=== PATIENT | female | born 1940 | race Caucasian/White ===

== ENCOUNTER → 2017-02-06 | Outpatient (CLI) | payer MEDICARE, OTHER | END | disposition home or self-care (01) | LOC: GMAB 14:52 | PROVIDERS: ATTEND Family Medicine | DX: I10 Essential (primary) hypertension (principal) ==

== ENCOUNTER 2017-12-03 05:32 | Day surgery (SDC) | payer MEDICARE, OTHER ==
[2017-12-03] MEDS ORDERED: PROPARACAINE 0.5% OPHTH SOL 15 ML BTTL ONE (06:07)
[2017-12-03] MEDS ORDERED: TROP 1%/CYCLOPEN 1%/PHENYL 2% DROPS ONE (06:07)
[2017-12-03] MEDS ORDERED: TOBRAMYCIN SULF 0.3 % OPHT SOL 1 DROP RIGHT_EYE ONE ×3 (08:25→09:39)
[2017-12-03] MEDS ORDERED: MIDAZOLAM INJ 2 MG/2 ML VIAL ONE ×2 (09:07→09:25)
[2017-12-03] MEDS ORDERED: PROPARACAINE 0.5% OPHTH SOL 15 ML BTTL RIGHT_EYE ONE (09:10)
[2017-12-03] MEDS ORDERED: LIDOCAINE 1% PF 2 ML AMP INJ ONE ×2 (09:20→09:26)
[2017-12-03] MEDS ORDERED: DEXAMETHASONE 0.1% OPHTH SOL 1 DROP RIGHT_EYE ONE ×2 (09:20→09:39)
[2017-12-03] MEDS ORDERED: BRIMONIDINE 0.2% OPHTH DROPS RIGHT_EYE ONE ×2 (09:20→09:39)
[2017-12-03 11:36] VITALS: O2SAT 95
[2017-12-03 11:38] VITALS: BP 110/72; TEMP 98.6
== END 2017-12-03 10:24 | disposition home or self-care (01) ==
LOC: AMB 05:32
PROVIDERS: ATTEND Ophthalmology
DX: H25.11 Age-related nuclear cataract, right eye (principal); I10 Essential (primary) hypertension; I25.10 Atherosclerotic heart disease of native coronary artery without angina pectoris; K21.9 Gastro-esophageal reflux disease without esophagitis; J44.9 Chronic obstructive pulmonary disease, unspecified; Z95.5 Presence of coronary angioplasty implant and graft; Z87.891 Personal history of nicotine dependence; Z79.899 Other long term (current) drug therapy
CPT/HCPCS: 00142; 66984; J2250

== ENCOUNTER 2017-12-17 05:21 | Day surgery (SDC) | payer MEDICARE, OTHER ==
[2017-12-17] MEDS ORDERED: PROPARACAINE 0.5% OPHTH SOL 15 ML BTTL ONE (05:52)
[2017-12-17] MEDS ORDERED: TROP 1%/CYCLOPEN 1%/PHENYL 2% DROPS ONE (05:52)
[2017-12-17] MEDS ORDERED: MIDAZOLAM INJ 2 MG/2 ML VIAL ONE ×2 (09:49→09:51)
[2017-12-17] MEDS ORDERED: PROPARACAINE 0.5% OPHTH SOL 15 ML BTTL LEFT_EYE ONE (09:52)
[2017-12-17] MEDS ORDERED: DEXAMETHASONE 0.1% OPHTH SOL 1 DROP LEFT_EYE ONE ×3 (10:00→10:21)
[2017-12-17] MEDS ORDERED: LIDOCAINE 1% PF 2 ML AMP INJ ONE ×2 (10:00→10:11)
[2017-12-17] MEDS ORDERED: BRIMONIDINE 0.2% OPHTH DROPS LEFT_EYE ONE ×3 (10:01→10:21)
[2017-12-17] MEDS ORDERED: TOBRAMYCIN SULF 0.3 % OPHT SOL 1 DROP LEFT_EYE ONE ×3 (10:01→10:21)
== END 2017-12-17 11:00 | disposition home health service (06) ==
LOC: AMB 05:21
PROVIDERS: ATTEND Ophthalmology
DX: H25.12 Age-related nuclear cataract, left eye (principal); I10 Essential (primary) hypertension; K21.9 Gastro-esophageal reflux disease without esophagitis; I25.10 Atherosclerotic heart disease of native coronary artery without angina pectoris; J44.9 Chronic obstructive pulmonary disease, unspecified; Z95.5 Presence of coronary angioplasty implant and graft; Z79.899 Other long term (current) drug therapy
CPT/HCPCS: 00142; 66984; J2250

== ENCOUNTER → 2018-04-03 | Outpatient (CLI) | payer MEDICARE, OTHER | LOC: GMAE 14:41 | PROVIDERS: ATTEND Family Medicine | DX: I10 Essential (primary) hypertension (principal) ==

== ENCOUNTER 2018-05-09 12:20 | Inpatient (IN) | payer MEDICARE, OTHER ==
--- NOTE | 2018-05-09 13:17 | RAD ---
EXAM DESCRIPTION: Chest x-ray,2 Views CLINICAL HISTORY: fever, cp after egd COMPARISON: Previous study July 17, 2017 TECHNIQUE: PA/lateral FINDINGS: Calcified breast implants are seen bilaterally. The aortic arch is calcified. Heart size is normal with normal pulmonary vascularity. No pleural effusion or pneumothorax. Lungs are clear with no consolidating infiltrate. Lateral view shows intact sternum and osteopenic T-spine. IMPRESSION: No acute process is identified in the chest. Electronically signed by: Wayne Snider MD 05/09/2018 1:15 PM CDT
[2018-05-09] MEDS ORDERED: MORPHINE SULFATE INJ 10 MG/ML VIAL IV ONE (14:49)
[2018-05-09] MEDS ORDERED: ALUM & MAG HYDROX-SIMETHICONE 30 ML, LIDOCAINE VISCOUS 2% 15 ML PO ONE ×2 (14:51)
[2018-05-09] MEDS ORDERED: ALUM & MAG HYDROX-SIMETHICONE 30 ML UD ONE (14:52)
[2018-05-09] MEDS ORDERED: LIDOCAINE HCL 2% (MOUTH-THROAT) 15 ML UD ONE (14:52)
--- NOTE | 2018-05-09 14:59 | CT ---
EXAM DESCRIPTION: Chest w/o Contrast CLINICAL HISTORY: 78 years Female, fever, chest pain after egd COMPARISON: Chest x-ray dated 09 May 2018 TECHNIQUE: Transaxial images were obtained without intravenous contrast media. Sagittal and coronal reconstruction was performed.This exam was performed according to our departmental dose-optimization program, which includes automated exposure control, adjustment of the mA and/or kV according to patient size and/or use of iterative reconstruction technique. FINDINGS: The thyroid is normal in appearance. No pathologic axillary adenopathy is observed. Bilateral breast prostheses are identified. Some coronary artery calcification is noted. No pleural fluid is seen. A small hiatus hernia is observed. No adrenal masses are detected. Bullous changes are observed in both lungs. No hilar or mediastinal adenopathy is seen. No focal infiltrate is seen. No bone abnormality is seen. IMPRESSION: 1. 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 2. Small hiatus hernia. 3. No etiology for the fever and chest pain is evident. Electronically signed by: Jhonathan Marquez MD 05/09/2018 2:57 PM CDT
[2018-05-09] MEDS ORDERED: PIPERACILLIN/TAZOBACTAM 3.375 GM in SODIUM CHLORIDE 0.9% 100ML 100 ML IVPB ONE (15:40)
[2018-05-09] MEDS ORDERED: SODIUM CHLORIDE 0.9% 100ML 100 ML IVPB ONE (15:45)
[2018-05-09] MEDS ORDERED: PIPERACILLIN/TAZOBACTAM 3.375 GM VIAL IVPB ONE ×2 (15:45→21:28)
--- NOTE | 2018-05-09 16:08 | ED.PDOC ---
History of Present Illness - General Chief Complaint: General Stated Complaint: esophageal pain Time Seen by Provider: 05/09/18 12:38 Source: patient Exam Limitations: no limitations - History of Present Illness Initial Comments: the patient is a 78-year-old female presenting to the emergency room secondary to substernal and epigastric chest pain since her EGD yesterday. She has documented a fever up to 101 at home. It is right around 100 here. She's been unable to swallow any solids but has been able to take liquids. The pain has been getting worse over the last 24 hours. She did have an esophageal dilation with the EGD yesterday. Timing/Duration: 24 hours Severity: severe Improving Factors: nothing Worsening Factors: eating Associated Symptoms: chest pain Allergies/Adverse Reactions: Allergies NO KNOWN ALLERGY Allergy (Verified 05/09/18 12:46) Home Medications: Ambulatory Orders Temazepam [Restoril] 15 mg PO BEDTIME 12/03/17 Aspirin [Ecotrin] 325 mg PO BEDTIME 05/09/18 Atorvastatin Calcium [Lipitor] 20 mg PO BEDTIME 05/09/18 Budesonide Nebs [Pulmicort Respules] 0.5 mg NEB PRN 05/09/18 [id number]-[id number] [Calcium & Magnesium + Zin 334-134-5 mg] 1 tab PO BEDTIME 05/09/18 Carisoprodol 350 mg PO BID PRN 05/09/18 Cholecalciferol [Vitamin D] 3,000 unit PO BEDTIME 05/09/18 Conjugated Estrogens [Premarin] 0.45 mg PO BEDTIME 05/09/18 Dexlansoprazole [Dexilant] 60 mg PO DAILY 05/09/18 Gabapentin 300 mg PO BEDTIME 05/09/18 HYDROcodone 5MG/APAP 325MG [Joshua Tree 5/325] 1 tab PO PRN 05/09/18 Losartan Potassium 100 mg PO DAILY 05/09/18 Multiple Vitamin [Multivitamins] 1 cap PO DAILY 05/09/18 Sertraline HCl [Zoloft] 100 mg PO DAILY 05/09/18 Review of Systems - Review of Systems Constitutional: States: fever EENTM: States: no symptoms reported Respiratory: States: no symptoms reported Cardiology: States: chest pain Gastrointestinal/Abdominal: States: abdominal pain Genitourinary: States: no symptoms reported Musculoskeletal: States: no symptoms reported Skin: States: no symptoms reported Neurological: States: no symptoms reported Endocrine: States: no symptoms reported All other Systems: No Change from Baseline Past Medical History (General) - Patient Medical History Hx Cardiac Disorders: Yes Hx Congestive Heart Failure: No Hx Hypertension: Yes Hx Diabetes: No Hx MRSA: No Surgical History: tonsillectomy - Vaccination History Hx Influenza Vaccination: Yes - 03/2018 Hx Pneumococcal Vaccination: Yes - Social History Hx Tobacco Use: Yes Family Medical History - Family History Mother Family History: Unknown Living Status: Unknown Physical Exam - Physical Exam General Appearance: Alert, Anxious Eye Exam: bilateral normal Ears, Nose, Throat: hearing grossly normal, normal ENT inspection Neck: full range of motion, supple, normal inspection Respiratory: lungs clear, normal breath sounds, no respiratory distress, no accessory muscle use Cardiovascular/Chest: normal peripheral pulses, regular rate, rhythm, no edema Peripheral Pulses: radial,right: 2+, radial,left: 2+, dorsalis pedis,right: 2+, dorsalis pedis,left: 2+ Gastrointestinal/Abdominal: soft, other - epigastric discomfort palpation Rectal Exam: deferred Back Exam: normal inspection, no CVA tenderness Extremity: normal range of motion, non-tender, normal inspection, no pedal edema , normal capillary refill 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 I did talk with her obstetric anaesthetist Dr. luna and discussed the patient's findings and workup with him. He does agree the most likely source is inflammation from the EGD with dilation yesterday. He does recommend doing antibiotics for the next 5 days such as Augmentin. Secondary to the patient's discomfort she is going to be admitted primarily for pain control over the next 24 hours until she is able to tolerate oral intake adequate enough to keep her hydrated. For now the patient will be on a liquid diet. She did respond very well to the GI cocktail symptomatically. She is going to be placed on Zosyn here for now. A blood culture was done. Admit for pain control and hydration and monitoring. Anticipate a relatively short hospital stay. Acid reducing medications will also be continued. - Results/Orders Results/Orders: chest x-ray shows no overt infiltrate or any evidence of any perforation. CT scan of the chest shows no etiology for the chest pain. No significant infiltrates. No evidence of any perforation of the esophagus. Laboratory Tests 05/09/18 05/09/18 05/09/18 13:17 13:17 13:17 WBC 6.1 RBC 4.43 Hgb 13.7 Hct 40.4 MCV 91.4 MCH 31.0 MCHC 33.9 RDW 13.5 Plt Count 113 L MPV 7.6 Absolute Neuts (auto) 4.50 Absolute Lymphs (auto) 0.90 L Absolute Monos (auto) 0.70 Absolute Eos (auto) 0.10 Absolute Basos (auto) 0.00 Neutrophils % 72.8 Lymphocytes % 14.1 L Monocytes % 11.6 H Eosinophils % 1.0 Basophils % 0.5 PT 9.5 INR 0.95 PTT (SP) 27.5 Sodium 137 Potassium 3.6 Chloride 103 Carbon Dioxide 27 Anion Gap 10.6 L BUN 9 Creatinine 0.67 BUN/Creatinine Ratio 13.4 Random Glucose 92 Serum Osmolality 272.1 L Lactic Acid Calcium 9.1 Magnesium 1.9 Total Bilirubin 0.6 AST 22 ALT 18 Alkaline Phosphatase 81 Creatine Kinase 66 CK-MB (CK-2) 1.0 CK-MB (CK-2) % Not Reportable Troponin I < 0.02 Serum Total Protein 6.8 Albumin 4.1 Globulin 2.7 Albumin/Globulin Ratio 1.5 Amylase 48 Lipase 12 L 05/09/18 13:17 WBC RBC Hgb Hct MCV MCH MCHC RDW Plt Count MPV Absolute Neuts (auto) Absolute Lymphs (auto) Absolute Monos (auto) Absolute Eos (auto) Absolute Basos (auto) Neutrophils % Lymphocytes % Monocytes % Eosinophils % Basophils % PT INR PTT (SP) Sodium Potassium Chloride Carbon Dioxide Anion Gap BUN Creatinine BUN/Creatinine Ratio Random Glucose Serum Osmolality Lactic Acid 0.7 Calcium Magnesium Total Bilirubin AST ALT Alkaline Phosphatase Creatine Kinase CK-MB (CK-2) CK-MB (CK-2) % Troponin I Serum Total Protein Albumin Globulin Albumin/Globulin Ratio Amylase Lipase Departure - Departure Clinical Impression: Esophagitis Disposition: Admit Patient Condition: Fair Home Medications: Ambulatory Orders Temazepam [Restoril] 15 mg PO BEDTIME 12/03/17 Aspirin [Ecotrin] 325 mg PO BEDTIME 05/09/18 Atorvastatin Calcium [Lipitor] 20 mg PO BEDTIME 05/09/18 Budesonide Nebs [Pulmicort Respules] 0.5 mg NEB PRN 05/09/18 [id number] [Calcium & Magnesium + Zin 334-134-5 mg] 1 tab PO BEDTIME 05/09/18 Carisoprodol 350 mg PO BID PRN 05/09/18 Cholecalciferol [Vitamin D] 3,000 unit PO BEDTIME 05/09/18 Conjugated Estrogens [Premarin] 0.45 mg PO BEDTIME 05/09/18 Dexlansoprazole [Dexilant] 60 mg PO DAILY 05/09/18 Gabapentin 300 mg PO BEDTIME 05/09/18 HYDROcodone 5MG/APAP 325MG [Joshua Tree 5/325] 1 tab PO PRN 05/09/18 Losartan Potassium 100 mg PO DAILY 05/09/18 Multiple Vitamin [Multivitamins] 1 cap PO DAILY 05/09/18 Sertraline HCl [Zoloft] 100 mg PO DAILY 05/09/18 Decision To Admit - Decistion To Admit Decision to Admit Reason: Medical Nature Decision to Admit Date: 05/09/18 Decision to Admit Time: 16:13
--- NOTE | 2018-05-09 17:07 | HP ---
SUPERVISING PHYSICIAN: Tim Pride MD CHIEF COMPLAINT: Esophageal pain. HISTORY OF PRESENT ILLNESS: This is a 78 year-old female patient who presented to the Emergency Room today with substernal epigastric chest pain since her EGD yesterday afternoon. She has had a hiatal hernia and gastroesophageal reflux disease in the past and she was having her esophageal stretched. Shortly after coming home after her procedure in [place], she had pain in her esophageal region and it was difficult for her to swallow solid foods. She was lying down to take a nap and she woke up with chills and fever. Her fever went up to 101.7. She was unable to reach the GI doctor, Dr. Moffett , overnight so this morning she spoke to Dr. Moffett and he told her to come to the nearest Emergency Room. Dr. Moffett called the Emergency Room and gave his recommendations for the patient. In the Emergency Room, her vital signs were temperature as high as 100.6. Her heart rate was 98, blood pressure 134/101, respiratory rate 20, 02 saturation 96 %. Her CBC was basically within normal limits except for a slightly low platelet count of 113,000. Her serum osmolality was 272.2 and her lipase was 12. Blood cultures were drawn. Chest x-ray showed no acute process. CT of the chest showed findings of bullous emphysema noted, small hiatus hernia and no etiology for the fever and chest pain is evident. There was no perforation seen on CT. Her lipase was 0.7 and she was given some fluids as well as started on Zosyn. The recommendations were to start her on Zosyn, advance her diet slowly as she tolerated it, monitor her closely over the next one to two days and she could be discharged on some Augmentin. I was called for hospital admission. PAST MEDICAL HISTORY: 1. Anxiety. 2. Depression. 3. Hyperlipidemia. 4. Gastroesophageal reflux disease. 5. Hypertension. PAST SURGICAL HISTORY: 1. Hysterectomy. 2. Tonsillectomy. 3. Breast augmentation. 4. Coronary artery stint placement. 5. Blowout fracture of the right eye. 6. Surgery to right foot due to cellulitis. 7. Carpal tunnel of right hand. CURRENT MEDICATIONS: ALLERGIES: No known drug allergies. FAMILY HISTORY: SOCIAL HISTORY: She lives [facility], she is . She has 3 children. She quit smoking in 2010. She drink alcohol rarely. She denies any illicit drug use. REVIEW OF SYSTEMS: GENERAL: Positive for fever, negative for fatigue or weight changes. HEENT: Negative for ear pain, vision changes, sinus symptoms or sore throat. RESPIRATORY. Denies shortness of breath, wheezing or coughing. CARDIAC: Negative for chest pain, palpitations, tachycardia. GI: Positive for epigastric pain and nausea, negative for vomiting, diarrhea or constipation. : Negative for hematuria, dysuria, polyuria. NEURO: Negative for seizures, headaches or dizziness. PHYSICAL EXAMINATION: VITAL SIGNS: Temperature 100.6, heart rate 96, blood pressure 104/64, respiratory rate 20, 02 saturation 97%. GENERAL: This is a 78 year-old female patient lying in her hospital bed. She is in no acute distress. HEENT: Normocephalic and atraumatic. Pupils are equal and reactive. Oropharynx is clear. NECK: Supple without mass. CHEST: CARDIOVASCULAR: Regular rate and rhythm. ABDOMEN: Soft, nontender, nondistended. Bowel sounds are positive. EXTREMITIES: No cyanosis, clubbing, or edema. NEUROLOGIC: She is awake, alert, and oriented x3. LABS AND FILMS: As per the history of present illness. ASSESSMENT: 1. SIRS related to post procedure esophagitis with temperature of 100.6 and heart rate of 96 on admission. 2. Febrile illness secondary to #1. 3. Hypertension, stable. 4. Gastroesophageal reflux disease. PLAN: Will admit patient to the hospital. I have started her on a PPI for ulcer prophylaxis as well as some general IV fluids overnight. I have also started her on the extended infusion of Zosyn. I have ordered antiemetics and pain medication. She will be on clear liquids for now and tomorrow morning if tolerated, we will advance her to a full-liquid. Hopefully, over the next one to two days she will be able to tolerate her medications and we can discharge her home on Augmentin with close followup with Dr. Moffett, her GI physician, as well as her primary care physician, Dr. Pride. #[id number] [facility]
[2018-05-09] MEDS ORDERED: ONDANSETRON INJ 4 MG/2 ML VIAL IV PRN (20:18)
[2018-05-09] MEDS ORDERED: SODIUM CHLORIDE 0.9% (FLUSH) 10 ML SYG IV PRN (20:18)
[2018-05-09] MEDS: MORPHINE SULFATE INJ 10 MG/ML VIAL IV PRN (20:27)
[2018-05-09] MEDS ORDERED: IV SET AND CAP CHANGE INJ INJ SCH (20:30)
[2018-05-09] MEDS ORDERED: PANTOPRAZOLE SODIUM IV 40 MG VIAL IV SCH (20:30)
[2018-05-09] MEDS ORDERED: KCL 20MEQ/0.45% NS 1,000 ML IVS PRN (20:52)
[2018-05-09] MEDS ORDERED: GABAPENTIN 300 MG CAP PO SCH (21:00)
[2018-05-09] MEDS ORDERED: TEMAZEPAM 15 MG PO SCH (21:00)
[2018-05-09] MEDS ORDERED: SODIUM CHL 0.9% 100ML MINI-BAG 100 ML IVPB ONE (21:27)
[2018-05-09] MEDS ORDERED: TEMAZEPAM 15 MG CAP ONE (21:28)
[2018-05-09] MEDS: PIPERACILLIN/TAZOBACTAM 3.375 GM in SODIUM CHLORIDE 0.9% 100ML 100 ML IVPB SCH (21:32)
[2018-05-10] MEDS: MORPHINE SULFATE INJ 10 MG/ML VIAL IV PRN (01:47)
[2018-05-10] MEDS ORDERED: SODIUM CHL 0.9% 100ML MINI-BAG 100 ML IVPB ONE (03:55)
[2018-05-10] MEDS ORDERED: PIPERACILLIN/TAZOBACTAM 3.375 GM VIAL IVPB ONE ×2 (03:56→12:28)
[2018-05-10] MEDS: PIPERACILLIN/TAZOBACTAM 3.375 GM in SODIUM CHLORIDE 0.9% 100ML 100 ML IVPB SCH ×2 (05:13→12:33)
[2018-05-10 08:50] VITALS: O2SAT 94
[2018-05-10] MEDS ORDERED: SERTRALINE HCL 50 MG TAB PO SCH (09:00)
[2018-05-10] MEDS ORDERED: LOSARTAN POTASSIUM 100 MG TAB PO SCH (09:00)
[2018-05-10] MEDS ORDERED: SODIUM CHLORIDE 0.9% 100ML 100 ML IVPB ONE (12:28)
--- NOTE | 2018-05-10 13:09 | PN ---
SUPERVISING PHYSICIAN: Oumar Pride MD DATE: 05/10/18 SUBJECTIVE: The patient is lying in bed, resting. She awakens easily. She has no complaints of nausea, vomiting, diarrhea or constipation. She says the pain in her esophagus continues, but it is much improved since yesterday. She is not having any trouble with pills that are capsules or very tiny, but she still is having trouble with larger pills or food. We discussed that she would stay on a full liquid for right now and we will advance her to a soft diet as tolerated. She agreed with that. OBJECTIVE: VITAL SIGNS: Afebrile. Heart rate 91. Blood pressure 137/58. Respiratory rate 18. O2 saturation 94% on room air. RESPIRATORY: Essentially clear to auscultation bilaterally. CARDIAC: Regular rate and rhythm. GASTROINTESTINAL: Abdomen is soft, nondistended, nontender. Bowel sounds are positive. EXTREMITIES: No cyanosis, clubbing or edema. NEUROLOGIC: Awake, alert and oriented times three. LABORATORY: WBC 4.6, stable hemoglobin of 13.1, hematocrit 38.9. Electrolytes are basically within normal limits except her calcium is slightly low at 8.3. Serum protein is low at 6.1. All other labs and films have been reviewed via the EMR. ASSESSMENT: 1. Systemic inflammatory response syndrome related to post procedure esophagitis with temperature of 100.6 and heart rate of 96 on admission. 2. Febrile illness secondary to #1. 3. Hypertension, stable. 4. Gastroesophageal reflux disease. PLAN: We will continue present supportive care. I have discontinued her primary IV fluids as she is taking p.o. fluids well. We will continue her on the Zosyn until she is able to swallow pills. We will advance her diet to a soft diet as tolerated. Once she is able to tolerate her pills, she can be discharged home with close followup with Dr. Moffett, her GI physician, as well as her primary care physician, Dr. Pride. I will hold on labs tomorrow as those have stabilized. We will monitor her closely and followed as needed. Dr. Pride is the collaborating physician and available for consultation. #[id number] #[id number] [facility]
[2018-05-10 14:06] VITALS: BP 133/68; TEMP 98.1
[2018-05-10] MEDS ORDERED: AMOXICILLIN & POT CLAVULANATE 875 MG TAB PO SCH (15:30)
[2018-05-10] MEDS ORDERED: TEMAZEPAM 15 MG CAP PO SCH (21:00)
[2018-05-10] MEDS ORDERED: ENOXAPARIN SODIUM 40 MG/0.4 ML SYG SUBCU SCH (21:00)
== END 2018-05-10 16:50 | disposition home or self-care (01) | DRG 948 ==
LOC: ER 12:20 → MS 17:06
PROVIDERS: ADMIT Nurse Practitioner Acute Care; ATTEND Nurse Practitioner Acute Care
DX: G89.18 Other acute postprocedural pain (principal); R65.10 Systemic inflammatory response syndrome (SIRS) of non-infectious origin without acute organ dysfunction; K44.9 Diaphragmatic hernia without obstruction or gangrene; F41.9 Anxiety disorder, unspecified; F32.9 Major depressive disorder, single episode, unspecified; E78.5 Hyperlipidemia, unspecified; K21.0 Gastro-esophageal reflux disease with esophagitis; R10.13 Epigastric pain; I10 Essential (primary) hypertension; Z95.5 Presence of coronary angioplasty implant and graft; Z87.891 Personal history of nicotine dependence

== ENCOUNTER 2018-05-29 05:38 | Day surgery (SDC) | payer MEDICARE, OTHER ==
[2018-05-29] MEDS ORDERED: LACTATED RINGERS 1,000 ML ONE (05:57)
[2018-05-29] MEDS ORDERED: LIDOCAINE 1% 10 ML VIAL INJ ONE (07:00)
[2018-05-29] MEDS ORDERED: PROPOFOL 200 MG/20 ML VIAL IV ONE (07:00)
[2018-05-29 08:51] VITALS: O2SAT 97
[2018-05-29 09:13] VITALS: BP 122/78; TEMP 97
--- NOTE | 2018-05-29 09:27 | OP ---
DATE OF PROCEDURE: 05/29/18 PREPROCEDURE DIAGNOSIS: 1. Screening for colorectal cancer, high risk for colon cancer given first degree family member history. POSTPROCEDURE DIAGNOSIS: 1. Large internal hemorrhoids. 2. Diverticulosis. PROCEDURE: 1. Colonoscopy. SURGEON: Felice Rushing MD COMPLICATIONS: No complications. SEDATION: The patient was sedated via IV propofol by the Anesthesia Department. CONSENT: Prior to the procedure, risks, benefits and alternatives to the therapy were discussed with the patient. The risks included bleeding, infection , perforation and . The patient agreed to the procedure and signed a consent. PREPROCEDURE ANESTHESIA ASSESSMENT: An examination revealed no contraindication to sedation. Airway examination demonstrated a Mallampati class type 2, ASA grade assessment type 2. Throughout the procedure, the patient's blood pressure and additional vitals were closely monitored. PROCEDURE: The patient was placed in the left lateral decubitus position and a rectal examination was performed. The rectal examination was within normal limits. The Olympus colonoscope was passed in the anus, rectum, traversing the colon to the level of the cecum as identified by the appendiceal orifice. The entirety of the exam was performed with direct visualization. Retroflexion was performed in the rectum. Preparation quality was good. The withdrawal time was greater than 6 minutes. The patient tolerated the procedure well. FINDINGS: 1. Large, non-bleeding internal hemorrhoids were found in retroflexion. 2. Moderate to severe diverticulosis was found in the sigmoid and descending colon. 3. Otherwise, the entirety of the colonic examination was normal. 4. Normal terminal ileum. RECOMMENDATION: 1. Return the patient home. 2. Resume previous diet. 3. Repeat colonoscopy in the following 5 years. 4. May obtain fecal occult blood testing/Cologuard on yearly basis and/or 3 years' respectively per primary care physician. 5. Schedule upper endoscopic ultrasound given history of submucosal nodule at gastroesophageal junction. 6. Return to my office after studies are completed. #[id number] [facility]
== END 2018-05-29 09:07 | disposition home or self-care (01) ==
LOC: AMB 05:38
PROVIDERS: ATTEND Internal Medicine Gastroenterology
DX: Z12.11 Encounter for screening for malignant neoplasm of colon (principal); K57.30 Diverticulosis of large intestine without perforation or abscess without bleeding; K64.8 Other hemorrhoids; R13.10 Dysphagia, unspecified; I10 Essential (primary) hypertension; I25.10 Atherosclerotic heart disease of native coronary artery without angina pectoris; Z95.5 Presence of coronary angioplasty implant and graft; Z86.010 Personal history of colon polyps; Z80.0 Family history of malignant neoplasm of digestive organs; Z87.891 Personal history of nicotine dependence; Z79.899 Other long term (current) drug therapy
CPT/HCPCS: 00812; G0105; J3490; J7120

== ENCOUNTER → 2019-05-08 | Outpatient (CLI) | payer MEDICARE, OTHER ==
--- NOTE | 2019-05-08 18:25 | RAD ---
EXAM DESCRIPTION: Chest,2 Views CLINICAL HISTORY: ACUTE UPPER RESP INFECTION COMPARISON: Previous study May 09, 2018 TECHNIQUE: PA/lateral FINDINGS: Rim calcified breast implants are seen bilaterally. Heart size is normal with normal pulmonary vascularity. No pleural effusion or pneumothorax. Lungs are clear with no consolidating infiltrate. Lateral view shows intact sternum and T-spine. IMPRESSION: No acute process is identified in the chest. Electronically signed by: Wayne Snider MD 05/08/2019 6:23 PM CDT
== END ==
LOC: RAD 17:46
PROVIDERS: ATTEND Nurse Practitioner Family
DX: J06.9 Acute upper respiratory infection, unspecified (principal)

== ENCOUNTER → 2019-05-29 | Outpatient (CLI) | payer MEDICARE, OTHER | LOC: GMAE 16:40 | PROVIDERS: ATTEND Family Medicine | DX: I10 Essential (primary) hypertension (principal); E78.2 Mixed hyperlipidemia ==

== ENCOUNTER → 2019-08-25 | Outpatient (CLI) | payer MEDICARE, OTHER ==
--- NOTE | 2019-08-26 09:48 | MRI ---
EXAM DESCRIPTION: Shoulder,Right CLINICAL HISTORY: 79 years, Female, Pain in right shoulder, chronic pain, unable to raise arm above head, limited range of motion. COMPARISON: Chest CT 05/09/2018 TECHNIQUE: MRI of the right shoulder was performed with multiplanar multi sequence imaging without intravenous contrast. FINDINGS: Rotator tendons: Background moderate supraspinatus tendinosis (with tendon thickening and intermediate signal). There is focal full-thickness (structurally significant) tear of the posterior supraspinatus tendon at the critical zone/myotendinous junction measuring 6 mm in AP dimension with interstitial delamination component extending towards the insertional fibers. The tear is just below the lateral aspect of the acromion. There is minimal tendon retraction. The anterior supraspinatus tendon is intact. Mild partial-thickness articular cartilage surface tears of the posterior infraspinatus insertional fibers. The subscapularis and teres minor tendons are intact. Rotator muscles: Mild grade 1 fatty infiltration of the supraspinatus and infraspinatus muscle. Glenoid labrum: Mild degenerative fraying of the anterior labrum. Acromion: The acromion morphology is type one. Mild acromioclavicular joint osteoarthrosis with mild capsular hypertrophy. Bone and joints: Moderate glenohumeral joint osteoarthrosis with marginal osteophyte formation and patchy areas of near full-thickness cartilage loss (grade 3-4 chondrosis) along the superior humeral head and subchondral fissuring/cystic changes involving the superior glenoid. Mild humeral head reactive bone marrow adjacent to the rotator cuff tear. Biceps tendon: Normal course of the biceps tendon long head within the bicipital groove. The biceps labral anchor appears intact. Mild intra-articular biceps tendinosis. Soft tissues: No solid or cystic mass is seen. No focal muscle strain or edema. Mild subacromial/subdeltoid bursitis. IMPRESSION: 1. Posterior supraspinatus tendon focal full-thickness tear with minimal tendon retraction. Background moderate supraspinatus tendinosis. Low-grade supraspinatus muscle fatty infiltration. 2. Infraspinatus tendon minimal articular surface partial-thickness tears. 3. Mild acromioclavicular joint osteoarthrosis with slight downsloping of the acromion. Mild subacromial/subdeltoid bursitis. 4. Moderate glenohumeral joint osteoarthrosis with patchy areas of near full-thickness cartilage loss and subcortical cystic changes. 5. Mild biceps long head intra-articular tendinosis. Electronically signed by: Doyle Bond DO 08/26/2019 9:46 AM [facility]
== END ==
LOC: MRI 13:44
PROVIDERS: ATTEND Family Medicine
DX: M75.101 Unspecified rotator cuff tear or rupture of right shoulder, not specified as traumatic (principal); M19.011 Primary osteoarthritis, right shoulder; M75.21 Bicipital tendinitis, right shoulder; M75.51 Bursitis of right shoulder; M75.91 Shoulder lesion, unspecified, right shoulder

== ENCOUNTER → 2019-09-01 | Outpatient (CLI) | payer MEDICARE, OTHER ==
--- NOTE | 2019-09-01 13:53 | RAD ---
EXAM DESCRIPTION: Shoulder,Right 2 or More Views CLINICAL HISTORY: 79 years Female, SHOULDER PAIN COMPARISON: Right shoulder radiograph 08/25/2019 TECHNIQUE: 4 view radiograph of the right shoulder. IMPRESSION: No acute displaced fracture. No dislocation. Mild arthrosis of the acromioclavicular joint without significant undersurface spurring or diastases. Mild glenohumeral arthrosis. Irregularity at the greater tuberosity can be seen with rotator cuff injury. No radiographically apparent soft tissue abnormality. Electronically signed by: Juan Luis Starr MD 09/01/2019 1:52 PM [facility]
== END ==
LOC: RAD 14:05
PROVIDERS: ATTEND Orthopaedic Surgery
DX: M19.011 Primary osteoarthritis, right shoulder (principal)

== ENCOUNTER → 2020-05-17 | Outpatient (CLI) | payer MEDICARE, OTHER | LOC: YCFC.O 13:20 | PROVIDERS: ATTEND Family Medicine | DX: I10 Essential (primary) hypertension (principal); E78.5 Hyperlipidemia, unspecified; M25.572 Pain in left ankle and joints of left foot; R53.81 Other malaise ==

== ENCOUNTER → 2020-05-24 | Outpatient (CLI) | payer MEDICARE, OTHER ==
--- NOTE | 2020-05-25 15:09 | CT ---
Procedure: CT LUNG SCREENING Exam Date: May 24, 2020. Ordering Provider: Alejandro Junior Clinical Indication: PERSONAL HISTORY OF NICOTINE DEPENDENCE . Smoking cessation x10 years. Approximately 40 pack year history. This patient meets eligibility criteria for low-dose CT lung cancer screening. Comparison: This is baseline lung cancer screening study. CT scan the chest without contrast April 2019. Technique: Using a multislice scanner, sequential helical axial imaging was obtained in the thorax, 2.5 mm thickness, 2.5 mm separation, from the level of the thoracic inlet through the lung bases without IV contrast. A low dose protocol was utilized for BMI less than 30: BMI: 29. CTDI: 1.76 mGy. 120. kVp. 45 mA. DLP 61 mGy-cm. 2D sagittal and coronal reconstructed images, 6.0 mm thickness, were obtained. This exam was performed according to our departmental dose optimization program which includes use of automated exposure control, adjustment of the mA and/or kV according to patient size and/or use of iterative reconstruction technique. Nodule measurements under 10 mm are given as mean value of 3 axes diameters. FINDINGS: Lungs and large airways: Bilateral subpleural scarring and multiple blebs more prevalent in the mid and lower lung dominguez posteriorly. Multiple blebs and bulla in the upper lobes and mostly mid and posterior lung. Calcified subpleural nodule stable in the subpleural left lower lobe base. Pleural parenchymal scarring in the base of the right middle lobe and in the inferior lingula. No new nodules and no focal mass. No new focal infiltrates. Pleura and space: Focal and diffuse thickening with no acute process or calcifications. Mediastinum and viviane: evaluation limited by low dose technique and lack of IV contrast. Small nodes but no dominant soft tissue mass stable since the prior study. Heart and great vessels: Coronary artery calcifications and atherosclerotic calcifications in several brachiocephalic vessels and the aortic arch. Chest wall, lower neck, axillae: Evaluation also limited by same factors as described above. Bilateral breast implants retroglandular with mostly calcified capsules. No definite leakage, but small radiodense nodules in the chest wall abutting the inferior breasts bilaterally. No change from the prior study. Small bilateral axillary nodes are stable. No interval change. Upper abdomen: Evaluation limited by low-dose technique. Included peritoneal space with no fluid or free air. Small sliding hiatal hernia. Atherosclerotic calcifications. Osseous structures: Evaluation limited by low dose MIP technique. Minimal joint arthrosis. IMPRESSION: Emphysematous changes in the lungs more prevalent in the upper lung dominguez. Bilateral posterior basilar subpleural emphysematous changes. No new nodules and no mass. Stable since the prior chest CT study. [facility] Best Practice Recommendations: please see below for Lung RADS category and FOLLOW-UP.* *Lung RADS category Category 1 - No nodule or definitely benign nodules (probability of malignancy less than 1%). Follow-up: Continue annual screening with Low Dose Chest CT in 12 months. Electronically signed by: Orlando Le MD 05/25/2020 3:07 PM CDT
--- NOTE | 2020-05-25 16:44 | US ---
EXAM DESCRIPTION: 3D Diagnostic, Bilateral (accession [id number]), Breast,Bilateral (accession [id number]): Ultrasound CLINICAL HISTORY: 80 yearsFemaleSCREENING MAMMO breast pain. No family history of breast cancer. Menarche age 13. Childbirth age 18. Menopause age 42. Currently on HRT Lifetime risk of developing breast cancer (Tyrer-Cuzick model)(%): 2.9. COMPARISON: Baseline study at this facility. TECHNIQUE: Bilateral LM, CC, and MLO projection full-field images, digital tomosynthesis technique, with and without Adair implant displacement. Bilateral 2-D digital full-field images: LM, CC, and MLO with and without Adair implant displacement. CAD available for 2-D images.. Transcutaneous scanning of the bilateral breasts utilizing hauser-scale and Doppler modes. Scanning performed by the electrical engineering draftsperson ; observation by Dr. Le. FINDINGS: The breast parenchymal density pattern is: Heterogeneously dense breast tissue, which may obscure small masses. No skin thickening or nipple retraction focal asymmetry versus mass density approximately 9:00 position 3 cm from the nipple. Second mass density versus focal asymmetry retroareolar left breast near the posterior nipple line. Multiple groups of coarse calcifications right breast. Solitary microcalcifications. Vascular calcifications. Calcification of both implant capsules. The implants are retroglandular. Skin mole markers. No suspicious microcalcifications bilaterally. Ultrasound: Scanning of the periareolar breast bilaterally. Also scanning. Right breast at 10:00. Focal fibroglandular tissues. 3.7 mL anechoic cyst with circumscribed thin margins parallel orientation and posterior acoustic enhancement. Similar appearing cyst in the left breast at 12:00 position retroareolar, measuring 2.3 mm bilateral breasts with no dominant solid mass no large calcifications and no fluid collection. IMPRESSION: Benign exam. BIRAD CATEGORY: 2 BENIGN FINDINGS. RECOMMENDATIONS: FOLLOW UP: Routine digital bilateral mammographic screening, one year interval from April 2020. Written communication explaining the IMPRESSION and follow-up, will be mailed to the patient and referring health care provider. The FINDINGS and the FOLLOW-UP plan were reviewed in person with the patient after the examination. According to the [employer], yearly mammograms are recommended starting at age 40 and continuing as long as a woman is in good health. Any breast change noted on a breast self-exam should be reported promptly to the patient's healthcare provider. Breast MRI is recommended for women with an approximately 20-25% or greater lifetime risk of breast cancer, including women with a strong family history of breast or ovarian cancer and women who have been treated for Hodgkin's disease. A negative mammographic report should not delay tissue diagnosis in patients with significant clinical history or physical findings. Extremely dense breast tissue limits the sensitivity of digital mammography. Electronically signed by: Orlando Le MD 05/25/2020 4:42 PM CDT
== END ==
LOC: MAMMO 14:00
PROVIDERS: ATTEND Family Medicine
DX: Z12.2 Encounter for screening for malignant neoplasm of respiratory organs (principal); J43.9 Emphysema, unspecified; Z87.891 Personal history of nicotine dependence; R92.0 Mammographic microcalcification found on diagnostic imaging of breast; R92.8 Other abnormal and inconclusive findings on diagnostic imaging of breast
CPT/HCPCS: 76641; 77066; G0279; G0297

== ENCOUNTER → 2020-06-07 | Outpatient (CLI) | payer MEDICARE, OTHER ==
--- NOTE | 2020-06-08 11:51 | MRI ---
EXAM DESCRIPTION: Cervical Spine: MRI. CLINICAL HISTORY: 80 years Female C-SPINE pain. COMPARISON: None. TECHNIQUE: Multiplanar, high-field MRI, multiple sequences, non-contrast Cervical spine. FINDINGS: C5-C6: Disc desiccation minimal disc space loss. Posterior broad-based bulge. Left side disc osteophyte bulge into the foramen with moderate narrowing. Mild narrowing of the right neuroforamen. Narrowing of the canal from hypertrophy of the posterior ligaments. C6-C7: Normal signal in the disc with disc space preserved. Thickening of the posterior ligaments. Mild canal narrowing. Neural foramina are patent.. Normal signal in the C2-C3 disc, C3-C4 disc, and C4-C5 disc. Also C7-T1 disc and T1-T2 discs. with no bulging. Disc spaces preserved. Canal and neural foramina are patent. Facet joints . Spinal alignment maintained. No cord compression or cord edema. Atlantoaxial joint minimal arthrosis. Base of the cerebellar tonsils is above the foramen magnum. Paravertebral soft tissues unremarkable.. Vertebral bodies are not compressed at any level. Otherwise normal marrow signal in the remaining vertebral bodies and the posterior elements. IMPRESSION: 1. Minimal spondylosis C5-C6 and disc desiccation. Posterior disc bulge and left side disc osteophyte bulge with moderate neural foraminal narrowing. Thickening of the posterior ligaments with canal narrowing. 2. Normal signal in the C6-C7 disc with thickening of the posterior ligaments and mild canal narrowing. 3. Remaining discs are unremarkable. Canal and foramina are patent. No significant arthrosis or hypertrophy of the facet joints and ligaments at other levels. Electronically signed by: Orlando Le MD 06/08/2020 11:49 AM [facility]
== END ==
LOC: MRI 14:09
PROVIDERS: ATTEND Psychiatry & Neurology Neurology
DX: M50.122 Cervical disc disorder at C5-C6 level with radiculopathy (principal); M47.22 Other spondylosis with radiculopathy, cervical region; M51.16 Intervertebral disc disorders with radiculopathy, lumbar region; M25.78 Osteophyte, vertebrae; M24.28 Disorder of ligament, vertebrae

== ENCOUNTER → 2020-06-08 | Outpatient (CLI) | payer MEDICARE, OTHER ==
--- NOTE | 2020-06-10 10:08 | MRI ---
EXAM DESCRIPTION: Lumbar Spine w/o Contrast : Magnetic Resonance Imaging. CLINICAL HISTORY: lumbar radiculopathy COMPARISON: Cervical spine MRI June 07 TECHNIQUE: Multiplanar, multiple standard sequences, non contrast MRI, lumbar spine. FINDINGS: L5-S1: The disc is well visualized on axial T2 series 501, image 3. Minimal disc desiccation with disc space preserved. Tiny posterior midline bulge. Posterior flavum ligaments and facet joints (canal elements) are unremarkable. Canal and foramina are patent. L4-L5: Disc desiccation with disc space preserved. Posterior focal bulge with minimal effacement of the subarticular recess. Minimal thickening of the flavum ligaments. AP canal diameter 10 mm. Bilateral foramina are patent. L3-L4: Normal signal in the disc with disc space preserved. Minimal hypertrophy of the canal elements. Mild canal narrowing. Bilateral foramina are patent. L2-L3: Disc desiccation with minimal disc space loss. Anterior bulging. Hypertrophy of the canal elements. Canal and bilateral foramina are patent. L1-L2: Normal signal in the disc with disc space preserved. Canal elements unremarkable. Canal and foramina are patent. Conus terminates at this level. Circumscribed hyperintense T1 and T2 hemangioma in the right T1 vertebral body. T12-L1: Normal signal in the disc with disc space preserved. Canal elements unremarkable. Foramina and bilateral canal are patent. Circumscribed hyperintense T1 and T2 hemangioma in the central T12 vertebral body. No scoliosis. Paravertebral soft tissues minimal fatty atrophy paravertebral muscles.. Distal cord normal signal and caliber. Normal marrow signal in the remaining vertebral bodies and the posterior elements. Vertebral bodies are not compressed at any level. IMPRESSION: 1. Minimal disc desiccation and disc space loss in the lower levels. Minimal hypertrophy of the posterior flavum ligaments. No significant foraminal narrowing. 2. Minimal thickening of the posterior flavum ligaments at L4-L5. Left posterior disc bulge. Borderline central canal stenosis, left of midline and narrowing of the left subarticular recess. 3. Please refer to FINDINGS for discussion of results at other disc space levels. Electronically signed by: Orlando Le MD 06/10/2020 10:07 AM [facility]
== END ==
LOC: MRI 13:57
PROVIDERS: ATTEND Psychiatry & Neurology Neurology
DX: M51.16 Intervertebral disc disorders with radiculopathy, lumbar region (principal); M48.061 Spinal stenosis, lumbar region without neurogenic claudication; M24.28 Disorder of ligament, vertebrae; M50.122 Cervical disc disorder at C5-C6 level with radiculopathy